=== PATIENT | male | born 1945 | race Caucasian/White ===

== ENCOUNTER 2016-06-18 11:30 | Outpatient (CLI) | payer MEDICARE ==
[~2016-06-18] VITALS: Ht 177.8 cm; Wt 113.4 kg
[~2016-06-18 11:30] MED LIST: CLON0.1T PO; METO-333 PO; PANT40SU PO; SUCR1TAB PO; TELM1TAB2 PO; TORS20TA3 PO
[2016-07-01] MEDS ORDERED: METO-352 PO (11:15)
== END 2016-06-18 12:01 ==
LOC: PREOP 11:30
PROVIDERS: ATTEND Surgery
DX: Z01.818 Encounter for other preprocedural examination (principal); K29.80 Duodenitis without bleeding; K21.9 Gastro-esophageal reflux disease without esophagitis

== ENCOUNTER 2016-06-22 08:32 | Day surgery (SDC) | payer MEDICARE ==
[~2016-06-22] VITALS: Ht 177.8 cm; Wt 113.4 kg
[2016-06-22] MEDS ORDERED: NS IV 1000 ML 1,000 ML ONE (08:34)
[2016-06-22] MEDS ORDERED: PROPOFOL INJECTION 50 ML IV ONE (08:35)
[2016-06-22 08:58] VITALS: BP 191/85
[2016-06-22] MEDS ORDERED: NS IV 1000 ML 1,000 ML IV STA (09:01)
--- NOTE | 2016-06-22 09:14 | Progress Note-Pre Operative ---
Pre-Operative Progress Note H&P Reviewed The H&P was reviewed, patient examined and no changes noted. Date H&P Reviewed: Jun 22, 2016 Time H&P Reviewed: 09:14 Pre-Operative Diagnosis: duodenitis, screening colonoscopy VISHNU COLEMAN DO Jun 22, 2016 9:14 am
[2016-06-22] MEDS ORDERED: fentaNYL INJECTION 100 MCG/2 ML AMP IVP PRN (09:15)
[2016-06-22] MEDS ORDERED: FLUMAZENIL (ROMAZICON) 0.1 MG/ML 5 ML VIAL INJ PRN (09:15)
[2016-06-22] MEDS ORDERED: MIDAZOLAM 2 MG/2 ML (VERSED) VIAL IVP PRN (09:15)
[2016-06-22] MEDS ORDERED: NALOXONE 0.4 MG/ML 1 ML (NARCAN) VIAL IVP PRN (09:15)
[2016-06-22] MEDS ORDERED: HURRICAINE EXT TUBE (BENZOCAINE) XX ONE (09:45)
[2016-06-22] MEDS ORDERED: proPOfol 200 MG/20 ML (DIPRIVAN) VIAL IV ONE (09:56)
--- NOTE | 2016-06-22 10:24 | Progress Note-Post Operative ---
Post-Operative Progess Note Pre-Operative Diagnosis duodenitis, screening colonoscopy Post-Operative Diagnosis antral ulcers, small hiatal hernia, poor prep but no abnormalities visualized Post-Op Procedure Note Date of Procedure: Jun 22, 2016 Name of Procedure: egd c biopsies, colonoscopy Procedure Note/Findings see note Anesthesia Type per fishing reel assembler Estimated blood loss (mL): none Specimen(s) collected antrum, distal esophagus VISHNU COLEMAN DO Jun 22, 2016 10:24 am
[2016-06-22] MEDS ORDERED: SUCR1TAB36 PO (10:40)
[2016-06-22] MEDS ORDERED: RANI150T90 PO (10:40)
--- NOTE | 2016-06-22 10:41 | Discharge Inst-Simple/Standard ---
Discharge Inst-Standard Discharge Medications New, Converted or Re-Newed RX: RX on Chart Patient Instructions/Follow Up Plan of Care/Instructions/FU: Follow up with Dr. Rutherford in 2 weeks Take medication as directed. Will need repeat colonoscopy in 5 years or sooner if current condition changes. Activity as Tolerated: Yes Discharge Diet: No Restrictions CODEY SHIPMAN APRN Jun 22, 2016 10:41
[2016-06-22 10:50] VITALS: BP 98/54
[2016-06-22 11:13] VITALS: BP 145/67
[2016-06-22 11:20] VITALS: BP 145/67
--- NOTE | 2016-06-22 12:51 | OPERATIVE REPORT ---
PROCEDURE PHYSICIAN: VISHNU COLEMAN DATE OF PROCEDURE: 06/22/2016 PREOPERATIVE DIAGNOSIS: 1. Duodenitis. 2. Screening colonoscopy. POSTOPERATIVE DIAGNOSIS: 1. Antral ulcers. 2. Small hiatal hernia. 3. Poor prep but no abnormalities visualized within the colon, PROCEDURE: 1. EGD biopsies. 2. Colonoscopy. SURGEON: Sangeeta. ANESTHESIA: Per BAG MACHINE HELPER. ESTIMATED BLOOD LOSS: None. COMPLICATIONS: None. INDICATIONS: The patient is a 70-year-old male who had a CT scan and abdominal pain. CT scan demonstrating a questionable duodenitis. The patient understands the risks and benefits of the procedure and wishes to proceed with procedures. Consent was signed on the chart. PROCEDURE: The patient was taken the endoscopy suite, placed in left lateral recumbent position. Timeout was performed. The scope was inserted into the mouth, down esophagus, stomach and into the duodenum without difficulty. No polyps, masses, ulcerations within the duodenum. The scope was then slowly retracted back. Within the stomach there were some multiple small antral ulcers with erythema. Biopsies of the antrum was obtained. The scope was also retroflexed noting a very small hiatal hernia. There were no other polyps, masses, ulcerations. The scope was returned as normal position slowly withdrawn back to the distal esophagus, where some slight erythematous changes were present, a biopsy was obtained. The scope was then slowly retracted until completely removed noting no other pathology. COLONOSCOPY: Digital rectal exam was performed. There is no palpable polyps, masses, ulcerations. The scope was inserted into the rectum and advanced all of the way to the cecum. Throughout the colon there is moderate amount of soft stool. Once in the rectum, copious amounts of irrigation was continued to be used to irrigate and suction. There were no polyps, masses, ulcerations visualized within the cecum, ascending, transverse, descending, sigmoid colon and rectum. Multiple insertions were placed inserting the scope in and out noting no other pathology in the rectum. The scope was then slowly retracted with completely removed. With irrigation and suction there was a decent visualization of most of the mucosa. There were still some areas where there was a significant amount of stool present that was unable to be suctioned. Therefore patient ever has any problems, he should be reevaluated at that time. I recommend repeating colonoscopy in 5 years to reexamine. If the patient has any problems prior to that, he should be reexamined at that time. The patient will be started on ranitidine and Carafate due to the antral ulcers. He is allergic to proton pump inhibitors. The patient will be seen approximately 2 to 3 weeks to see how he is doing at that time and go over biopsies and findings. Job ID: [id number] Dictated Date: 06/22/2016 10:28:14 Customer Records Division Supervisor Date: 06/22/2016 12:42:29 / saritha
[2016-07-01] MEDS ORDERED: METO-352 PO (11:15)
== END 2016-06-22 11:20 | disposition home or self-care (01) ==
LOC: SDC 08:32
PROVIDERS: ATTEND Surgery
DX: K29.80 Duodenitis without bleeding (principal); K25.9 Gastric ulcer, unspecified as acute or chronic, without hemorrhage or perforation; K44.9 Diaphragmatic hernia without obstruction or gangrene; I10 Essential (primary) hypertension; F17.210 Nicotine dependence, cigarettes, uncomplicated; J44.9 Chronic obstructive pulmonary disease, unspecified

== ENCOUNTER → 2016-06-23 | Outpatient (CLI) | payer MEDICARE ==
[~2016-06-23] MED LIST changes: +ASCO10006 PO; +CHOL-6 PO; +ECHINACEA PO; +HYDR12.5 PO; +METO-352 PO; +OMEP20CA12 PO; +POTA10CA43 PO; +RANI150T11 PO; +RANI150T90 PO; +SUCR1TAB36 PO; +TELM40TA3 PO; +VITAMIN E PO; +[UNRECOGNIZED DRUG - CODE] PO
--- NOTE | 2016-06-23 16:45 | Diagnostic Imaging Report ---
Renal vascular duplex ultrasound. INDICATION: Hypertension. FINDINGS: The right kidney is 12.9 cm and the left kidney is 13.4 cm in length. There is no hydronephrosis or focal lesion seen. Peak systolic velocities in the right renal artery are 109, 112 and 129 cm/sec from proximal to distal and on the left side the proximal and midrenal artery segments are obscured. The distal left renal artery velocity is 109 cm/sec. Resistive index in the right kidney is in the range of 0.67-0.71 and in the left kidney is in the range of 0.67-0.71. The urinary bladder appears unremarkable. IMPRESSION: No evidence of right renal artery stenosis. The left renal artery is obscured in its proximal and mid segments. Correlation with CT scan of the abdomen from 05/29/2016 demonstrated a plaque in the proximal left renal artery. Although it is not a CTA protocol, there is suggestion of a potentially significant degree of underlying stenosis. Correlation with CTA, MRA or renal angiogram could be considered. Dictated by: Dictated on workstation # [id number]
== END ==
LOC: RAD 10:03
PROVIDERS: ATTEND Internal Medicine Interventional Cardiology
DX: I10 Essential (primary) hypertension (principal); R00.1 Bradycardia, unspecified; R00.8 Other abnormalities of heart beat
CPT/HCPCS: 93225; 93226; 93975

== ENCOUNTER 2016-07-01 06:58 | Day surgery (SDC) | payer MEDICARE ==
[~2016-07-01] VITALS: Ht 177.8 cm; Wt 119.7 kg
[2016-07-01] VITALS (10 sets, daily range): BP systolic 118–225; BP diastolic 88–131
[~2016-07-01 06:58] MED LIST changes: -ASCO10006 PO; -CHOL-6 PO; -ECHINACEA PO; -HYDR12.5 PO; -METO-352 PO; -OMEP20CA12 PO; -POTA10CA43 PO; -RANI150T11 PO; -TELM40TA3 PO; -VITAMIN E PO; -[UNRECOGNIZED DRUG - CODE] PO
[2016-07-01] MEDS ORDERED: NS IV 1000 ML 1,000 ML ONE (07:00)
[2016-07-01] MEDS ORDERED: LIDOCAINE 1% INJ 20 ML (XYLOCAINE) VIAL ONE (07:00)
[2016-07-01] MEDS ORDERED: HEParin (CATH LAB) 2,000 ML IV ONE (07:00)
[2016-07-01] MEDS ORDERED: NS IV 1000 ML 1,000 ML IV SCH ×2 (07:30→11:11)
[2016-07-01 07:32] LABS: MEAN PLATELET VOLUME 9.2 FL (7.4-10.4); RED BLOOD COUNT 4.44 10^6/uL (4.35-5.85); WHITE BLOOD COUNT 6.5 10^3/uL (4.3-11.0)
[2016-07-01 07:43] LABS: PROTHROMBIN TIME PATIENT 13.1 SEC (12.2-14.7)
[2016-07-01 07:52] LABS: ALANINE AMINOTRANSFERASE 18 U/L (0-55); ALBUMIN 4.2 G/DL (3.2-4.5); ANION GAP 10 MMOL/L (5-14); ASPARTATE AMINO TRANSFERASE 15 U/L (5-34); BILIRUBIN,TOTAL 1.2 MG/DL (0.1-1.0); BLOOD UREA NITROGEN 18 MG/DL (7-18); BUN/CREATININE RATIO 17; CALCIUM 8.7 MG/DL (8.5-10.1); CARBON DIOXIDE 28 MMOL/L (21-32); CHLORIDE 100 MMOL/L (98-107); CREATININE SERUM 1.08 MG/DL (0.60-1.30); GFR ESTIMATED > 60; GLUCOSE 146 MG/DL (70-105); POTASSIUM 3.5 MMOL/L (3.6-5.0); SODIUM 138 MMOL/L (135-145); TOTAL PROTEIN 7.2 G/DL (6.4-8.2)
[2016-07-01] MEDS ORDERED: FLU TRIvalent (5 YOA+) 2016-17 (AFLURIA) 0.5 ML IM ONE (08:00)
[2016-07-01] MEDS ORDERED: CHOL-6 PO (08:42)
[2016-07-01] MEDS ORDERED: MIDAZOLAM 5 MG/5 ML (VERSED) VIAL ONE (08:42)
[2016-07-01] MEDS ORDERED: VERAPAMIL 5 MG/2 ML (CALAN) VIAL IV ONE (08:42)
[2016-07-01] MEDS ORDERED: VITAMIN E PO (08:42)
[2016-07-01] MEDS ORDERED: HEParin 1000 UNIT/ML (10ML VIAL) FOR BOLUS ONE (08:42)
[2016-07-01] MEDS ORDERED: ECHINACEA PO (08:42)
[2016-07-01] MEDS ORDERED: TELM40TA3 PO (08:42)
[2016-07-01] MEDS ORDERED: [UNRECOGNIZED DRUG - CODE] PO (08:42)
[2016-07-01] MEDS ORDERED: NITROGLYCERIN DRIP 25 MG/D5W 250 ML IV ONE (08:42)
[2016-07-01] MEDS ORDERED: ASCO10006 PO (08:42)
[2016-07-01] MEDS ORDERED: fentaNYL INJECTION 100 MCG/2 ML AMP ONE (08:42)
[2016-07-01] MEDS ORDERED: RANI150T11 PO (08:42)
[2016-07-01] MEDS ORDERED: HYDR12.5 PO (08:42)
[2016-07-01] MEDS ORDERED: OMEP20CA12 PO (08:42)
[2016-07-01] MEDS ORDERED: POTA10CA43 PO (08:42)
--- NOTE | 2016-07-01 11:00 | Cardiac Procedure Note-CS/ASA ---
Pre-Procedure Note Pre-Op Procedure Note H&P Reviewed The H&P was reviewed, patient examined and no changes noted. Date H&P Reviewed: Jul 01, 2016 Time H&P Reviewed: 08:30 Conscious Sedation Pre-Proced Time Reviewed: 08:30 ASA Class: 2 Airway Mallampati Classification: ([place] appropriate class) I. II. III, IV Lungs Heart ASA score ASA 1: a normal healthy patient ASA 2: a patient with a mild systemic disease (mid diabetes, controlled hypertension, obesity ASA 3: a patient with a severe systemic disease that limits activity (angina , COPD, prior Myocardial infarction) ASA 4: a patient with an incapacitating disease that is a constant threat to life (CHF, renal failure) ASA 5: a moribund patient not expected to survive 24 hrs. (ruptured aneurysm) ASA 6: a declared brain patient whose organs are being harvested. For emergent operations, add the letter E after the classification Grade 1 Sedation Plan: Analgesia, Amnesia, Plan communicated to team members, Discussed options with patient/fam, Discussed risks with patient/fam Note The patient is an appropriate candidate to undergo the planned procedure, sedation, and anesthesia. The patient immediately re-assessed prior to indication. Perico RASHID MD Jul 01, 2016 11:00 am
--- NOTE | 2016-07-01 11:06 | Progress Note-Post Operative ---
Post-Operative Progess Note Pre-Operative Diagnosis shortness of breath, multifocal PVCs, ventricular tachycardia Post-Operative Diagnosis moderate single vessel coronary artery disease Post-Op Procedure Note Date of Procedure: Jul 01, 2016 Name of Procedure: coronary angiography, left heart catheterization Procedure Note/Findings normal LV function with no wall motion abnormalities. Patent RCA, patent LAD/diagonal, patent ramus intermedius, moderate proximal disease in a small/medium-sized left circumflex artery. Anesthesia Type local anesthesia, conscious sedation Estimated blood loss (mL): 10 mL Packing: none Specimen(s) collected none Perico RASHID MD Jul 01, 2016 11:06 am
[2016-07-01] MEDS ORDERED: PATIENT MAY USE OWN MEDS, ALL PO SCH (11:15)
[2016-07-01] MEDS ORDERED: METO-352 PO (11:15)
--- NOTE | 2016-07-01 11:16 | Discharge Inst-Post CATH ---
Discharge Inst-CATH Post Cardiac Cath D/C Inst Follow Up/Plan Dr Jamison in one to two weeks 30 day event monitor CARDIAC CATH DISCHARGE INSTRUCTIONS *Hold Metformin for 48 hours post heart cath. ACTIVITY * Go Home directly and rest. * Limit activity of the leg (or wrist if it was used) for 7 days including aerobics, swimming, jogging, bicycling, etc. * Restrict stair-climbing for 7 days if possible, if not, climb up with your non -cath leg, then bring together on the same step. * Avoid lifting, pushing, pulling or excessive movement of the affected extremity for 7 days. * Customary sexual activity may be resumed after 2 days-use caution not to use a position that strains or causes pain to the affected extremity. * No driving for 24 hours. * NO SMOKING. * Avoid straining for bowel movements for 7 days. * Gentle walking on level ground is allowed. * Returning to work will depend on the type of procedure and the results. Your doctor will discuss this with you. CALL YOUR DOCTOR FOR ANY OF THE FOLLOWING: *If bleeding from the puncture site occurs- Apply gentle pressure to site with clean cloth and call your doctor or EMS. * If a knot or lump forms under the skin, increases in size, or causes pain. * If bruising appears to be worsening or moving further down your leg instead of disappearing. * Temperature above 101 F. CARE OF YOUR GROIN INCISION; * Bruising or purple discoloration of the skin near the puncture site is common. * You may shower only, no bathtub bathing for 5 days. Be careful to avoid slipping as your leg may feel stiff. * If a closure device was used on your femoral artery, please see the attached guide regarding care of the device and your leg. * REMOVE the dressing from your groin the next day after your procedure in the shower. CARE OF YOUR WRIST INCISION; * Bruising or purple discoloration of the skin near the puncture site is common. * You may shower. * DO NOT submerge wrist. * Remove dressing in 24 hours. Perico JAMISON MD Jul 01, 2016 11:16 am
--- NOTE | 2016-07-01 11:19 | Cardiology Discharge Summary ---
Diagnosis/Chief Complaint Date of Admission 07/01/2016 Date of Discharge 07/01/2016 Admission Diagnosis shortness of breath, multifocal PVCs, ventricular tachycardia, active smoking Final/Discharge Diagnosis moderate single-vessel coronary artery disease Chief Complaint/HPI Chief Complaint/HPI shortness of breath, multifocal PVCs, 8 second run of ventricular tachycardia, active smoking Discharge Summary Procedures coronary angiography, left heart catheterization Discharge Physical Examination stable Hospital Course moderate single vessel coronary artery disease, normal LV function Pending Labs Laboratory Tests 07/01/16 07:25: Activated Partial Thromboplast Time 27, Alanine Aminotransferase (ALT/SGPT) 18, Albumin 4.2, Alkaline Phosphatase 50, Anion Gap 10, Aspartate Amino Transf (AST/ SGOT) 15, BUN/Creatinine Ratio 17, Blood Urea Nitrogen 18, Calcium Level 8.7, Carbon Dioxide Level 28, Chloride Level 100, Creatinine 1.08, Estimat Glomerular Filtration Rate > 60, Glucose Level 146, Hematocrit 40, Hemoglobin 14.5, INR Comment 1.0, Mean Corpuscular Hemoglobin 33, Mean Corpuscular Hemoglobin Concent 36, Mean Corpuscular Volume 90, Mean Platelet Volume 9.2, Platelet Count 149, Potassium Level 3.5, Prothrombin Time 13.1, Red Blood Count 4.44, Red Cell Distribution Width 15.0, Sodium Level 138, Total Bilirubin 1.2, Total Protein 7.2, White Blood Count 6.5 Discussion & Recommendations Discussion moderate single vessel coronary artery disease, normal LV function, 30 day event monitor is recommended. Dicharge Diet: Cardiac Diet Activity as Tolerated: Yes Home Medications Reviewed patient Home Medication Reconciliation Form Discharge Home Medications: Reviewed and agree with Discharge Medication list on patient's Discharge Instruction sheet Condition at discharge stable Instructions to patient/family Dr Jamison in one to two weeks 30 day event monitor Perico JAMISON MD Jul 01, 2016 11:19 am
--- NOTE | 2016-07-01 11:50 | ECHOCARDIOGRAPHY REPORT ---
PROCEDURE PHYSICIAN: LEELEE RASHID DATE OF PROCEDURE: 07/01/2016 TWO DIMENSIONAL ECHOCARDIOGRAM REPORT PRIMARY PHYSICIAN: OTHER PHYSICIAN: REFERRING PHYSICIAN: ORDERING PHYSICIAN: ATTENDING PHYSICIAN: FAMILY PHYSICIAN: READING PHYSICIAN: INDICATION FOR THE PROCEDURE: MEASUREMENTS DERIVED VALUES LV DIAMETER (LAX) NORMALS NORMALS Diastolic (3.6-5.2) Eject. Fract. (60%+/-6%) Systolic (2.3-3.9) Diastolic Vol. % Shortening (0.22-0.42) Systolic Vol. Aortic Root IVS THICKNESS Diastolic (0.6-1.1) LVPW THICKNESS Diastolic (0.6-1.1) LA DIAMETER Systolic (2.1-3.7) FINDINGS: 1. Sinus rhythm. 2. Left atrial dimensions are enlarged. Left atrial diameter is 4.5 cm. 3. Aortic root dimensions are normal. 4. Left ventricular systolic function is preserved. Left ventricular ejection fraction is 60 to 70%. Mild concentric LVH is present. Diastolic intraventricular septal diameter is 1.2 cm. 5. There is no wall motion abnormalities. 6. Right heart dimensions are normal. Right ventricular systolic function is preserved. 7. There is no evidence of pericardial effusion. 8. There is mild diastolic dysfunction present. 9. IVC diameter is 1.7 cm with normal respiratory variation. VALVULAR STRUCTURE OF THE HEART: Mitral valve: There is mild mitral annular calcification noted. There is mild mitral regurgitation. The aortic valve has mild sclerosis with no significant evidence of stenosis or regurgitation. The tricuspid valve has mild tricuspid regurgitation. RVSP is 59 mmHg. The pulmonic valve is within normal limits. CONCLUSION: 1. LV and RV size and function is normal. 2. LV EF is 60 to 70%. 3. Mild concentric LVH and left atrial enlargement is noted. 4. Moderate pulmonary hypertension is noted with RVSP of 59 mmHg. 5. Mild diastolic dysfunction is present. Job ID: [id number] Dictated Date: 07/01/2016 09:37:08 Commercial Credit Lead Date: 07/01/2016 11:45:34 / saritha
[2016-07-02] MEDS ORDERED: ASPIRIN E.C. 81 MG (ECOTRIN) TAB PO SCH (09:00)
--- NOTE | 2016-07-02 09:35 | CARDIAC CATHETERIZATION ---
PROCEDURE PHYSICIAN: LEELEE RASHID CORONARY ANGIOGRAPHY DATE OF PROCEDURE: 07/01/2016 INDICATION: Shortness of breath, multifocal PVC's, ventricular tachycardia. PREOPERATIVE DIAGNOSIS: Shortness of breath, multifocal PVCs, ventricular tachycardia. POSTOPERATIVE DIAGNOSIS: Moderate single vessel coronary artery disease. HISTORY: Mr. Zamora is a 70-year-old gentleman who I previously saw for shortness of breath and frequent PVCs. Since he had a stress echocardiogram, which was negative recently we did not performed any further invasive cardiac testing. However, to assess the burden of PVCs. We performed a Holter monitor which showed frequent multifocal PVCs and 8 seconds run of an irregular wide complex tachycardia, which could likely be ventricular tachycardia. Other differential include atrial fibrillation with aberrancy. Therefore coronary angiography was recommended to rule out coronary artery disease as a cause of significant ventricular ectopy and ventricular tachycardia. The patient also has risk factors including active smoking. PROCEDURE PERFORMED: 1. Right upper extremity angiography. 2. Coronary angiography. 3. Left heart catheterization. COMPLICATIONS: None. SPECIMENS: None. ESTIMATED BLOOD LOSS: 10 mL. CONTRAST: 160 mL of Omnipaque. FLUOROSCOPY TIME: 11.7 minutes. FLUOROSCOPY DOSE: 3,091 mGy. ANTICOAGULATION: Heparin. PROCEDURE DETAILS: The patient was brought to the Purification Operator after informed consent was taken. All the risks and complications were explained in detail including vessel damage, bleeding, CVA, stroke, [place], even . The patient was brought to the Purification Operator and draped and prepped in the usual sterile fashion. Access was gained in the right radial artery with a 6-Green[place]ic sheath. However, we had difficulty in advancing a regular J tipped 0.035 guidewire therefore right upper extremity angiography was performed. 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 We therefore switched to a Storq long wire and were able to get to the aortic root. Coronary angiography and left heart catheterization was performed with a Claudio catheter. Right coronary artery angiography was performed with a JR4 catheter. FINDINGS: 1. Left heart catheterization: Aortic pressure 166/99 mmHg, LV pressure 168/15 mmHg, LVEDP 24 mmHg. Normal LV function with no wall motion abnormalities. There was no gradient across the aortic valve. 2. Normal left main. 3. Left circumflex artery. There is a small left circumflex artery, which is essentially an AV groove artery with moderate proximal stenosis (50%). However, this is a small vessel between 1.5-2 mm diameter. There is a larger ramus intermedius artery which is supplying most of the lateral wall and part of the apex as well. 4. LAD: The LAD is not a large vessel and it is also not a transapical vessel. There one or two large diagonal arteries as well which is supplying the anterior wall as well as the apex and the lateral well. 5. RCA: It was very difficult to engage the RCA with a Claudio catheter. We then shifted to a 5-[place]ic JR 4 diagnostic catheter which showed no significant disease in the RCA. 6. Right upper extremity angiography: patent right radial and ulnar artery. IMPRESSION/CONCLUSION: 1. Moderate single vessel coronary artery disease. 2. Normal LV function with increased LVEDP. 3. Increase LVEDP suggests diastolic dysfunction. 4. Discharged on aspirin and beta chanda. Good blood pressure control is recommended. 5. 30 day event monitor for further arrhythmia surveillance. \ 6. He will follow-up in my office in 1 to 2 weeks. Job ID: [id number] Dictated Date: 07/01/2016 11:42:44 Medical Office Asst Date: 07/02/2016 09:21:39 / saritha DODGE
== END 2016-07-01 15:05 | disposition home or self-care (01) ==
LOC: CARD 06:58 → SURG 11:40 → CARD 15:05
PROVIDERS: ATTEND Internal Medicine Interventional Cardiology
DX: I25.10 Atherosclerotic heart disease of native coronary artery without angina pectoris (principal); I47.2 Ventricular tachycardia; I49.3 Ventricular premature depolarization; R06.02 Shortness of breath; I10 Essential (primary) hypertension; R60.9 Edema, unspecified; R00.8 Other abnormalities of heart beat; Z72.0 Tobacco use; Z79.899 Other long term (current) drug therapy
CPT/HCPCS: 36415; 75710; 80053; 85027; 85610; 85730; 87081; 93005; 93306; 93458

== ENCOUNTER 2016-08-02 09:30 | Outpatient (RCR) | payer MEDICARE ==
[~2016-08-02 09:30] MED LIST changes: +ASCO10006 PO; +CHOL-6 PO; +ECHINACEA PO; +HYDR12.5 PO; +METO-352 PO; +OMEP20CA12 PO; +POTA10CA43 PO; +RANI150T11 PO; +TELM40TA3 PO; +VITAMIN E PO; +[UNRECOGNIZED DRUG - CODE] PO
== END 2016-10-04 | disposition home or self-care (01) ==
LOC: CARD 09:30
PROVIDERS: ATTEND Internal Medicine Interventional Cardiology
DX: I48.91 Unspecified atrial fibrillation (principal)
CPT/HCPCS: 93270

== ENCOUNTER 2017-11-11 20:02 | Emergency (ER) | payer MEDICARE ==
[~2017-11-11] VITALS: Ht 177.8 cm; Wt 119.7 kg
--- NOTE | 2017-11-11 21:08 | ED Lower Extremity ---
General Chief Complaint: Lower Extremity Stated Complaint: R KNEE PAIN Source: patient Exam Limitations: no limitations History of Present Illness Date Seen by Provider: Nov 11, 2017 Time Seen by Provider: 21:06 Initial Comments to ER with right knee pain. this began this morning. No history of this. Pain is limited to a quarter-sized area to the anteromedial aspect of the right knee. Worsened with leg extension, very tender to palpation. He denies any known injury. Onset: just prior to arrival Severity: moderate Pain/Injury Location: right knee Method of Injury: unknown Modifying Factors: Worse With Movement Allergies and Home Medications Allergies Coded Allergies: ibuprofen (Verified Allergy, Unknown, 06/22/16) Uncoded Allergies: ppi (Allergy, Mild, diarrhea, 06/22/16) Home Medications Ascorbic Acid 1,000 Mg Tablet, 2,000 MG PO DAILY, (Reported) Cholecalciferol (Vitamin D3) 10,000 Unit Capsule, 10,000 UNIT PO DAILY, ( Reported) Clonidine HCl 0.1 Mg Tablet, 0.1 MG PO DAILY PRN for BLOOD PRESSURE, (Reported) Hydrochlorothiazide 12.5 Mg Capsule, 12.5 MG PO DAILY, (Reported) Lecithin 1,200 Mg Capsule, 1,200 MG PO DAILY, (Reported) Metoprolol Succinate 50 Mg Tab.er.24h, 50 MG PO DAILY Prescribed by: Perico RASHID on 07/01/16 1115 Omeprazole 20 Mg Capsule.dr, 20 MG PO DAILY, (Reported) Potassium Chloride 10 Meq Capsule.er, 20 MEQ PO DAILY PRN for WITH TORSEMIDE, ( Reported) TAKES 2 (10 MEQ) CAPSULES Ranitidine HCl 150 Mg Tablet, 150 MG PO BID, (Reported) Telmisartan 40 Mg Tablet, 40 MG PO DAILY, (Reported) Torsemide 20 Mg Tablet, 20 MG PO DAILY PRN for EDEMA, (Reported) [Echinacea] , 1 CAP PO DAILY, (Reported) [Vitamin E] , 1 CAP PO DAILY, (Reported) Patient Home Medication List Home Medication List Reviewed: Yes Constitutional: see HPI EENTM: see HPI Respiratory: no symptoms reported Cardiovascular: no symptoms reported Genitourinary: no symptoms reported Musculoskeletal: see HPI Skin: no symptoms reported Psychiatric/Neurological: No Symptoms Reported Past Llgdizz-Ezmjfl-Sjllda Hx Patient Social History Alcohol Use: Denies Use Recreational Drug Use: No Type Used: Cigarettes Recent Foreign Travel: No Contact w/Someone Who Travel: No Recent Hopitalizations: No Immunizations Up To Date Tetanus Booster (TDap): Unknown Seasonal Allergies Seasonal Allergies: No Past Medical History Surgeries: Yes (foot surgery, ARM, CATARACT) Tonsillectomy Respiratory: Yes (MILD) Sleep Apnea Cardiac: Yes (POSSIBLE ATRIAL FIB, STRESS ECHO-GOOD, BIGEMINY) Hypertension Neurological: No Reproductive Disorders: No Sexually Transmitted Disease: No HIV/AIDS: No Gastrointestinal: Yes (DUODENITIS) Ulcer Musculoskeletal: Yes Arthritis, Back Injury, Chronic Back Pain Endocrine: No Loss of Vision: Bilateral Hearing Impairment: Denies Cancer: No Psychosocial: No Integumentary: No Blood Disorders: No Adverse Reaction/Blood Tranf: No (N/A) Family Medical History No Pertinent Family Hx Physical Exam Vital Signs Vital Signs - First Documented 11/11/17 21:02 Temp 99.9 Pulse 66 Resp 18 B/P (MAP) 185/98 (127) Capillary Refill : General Appearance: WD/WN, no apparent distress HEENT: PERRL/EOMI, normal ENT inspection Neck: non-tender, full range of motion Respiratory: no respiratory distress, no accessory muscle use Hips: bilateral hip non-tender, bilateral hip normal inspection, bilateral hip normal range of motion Legs: bilateral leg non-tender, bilateral leg normal inspection, bilateral leg normal range of motion Knees: right knee other (here is tenderness to palpation to a quarter size area over the anteromedial aspect of the proximal tibia at the knee. There is no overlying erythema or swelling. There is no palpable knee effusion.) Ankles: bilateral ankle non-tender, bilateral ankle normal inspection, bilateral ankle normal range of motion Feet: bilateral foot non-tender, bilateral foot normal inspection, bilateral foot normal range of motion Neurologic/Psychiatric: alert, normal mood/affect, oriented x 3 Skin: normal color, warm/dry Progress/Results/Core Measures Results/Orders My Orders Orders - MELINDA SPIVEY APRN Knee, Right, 3 Views (11/11/17 21:04) Hydrocodone/Apap 5/325 Tablet (Lortab 5 (11/11/17 21:15) Lidocaine 2% Injection 20 Ml (Xylocaine (11/11/17 22:00) Bupivacaine 0.5% Injection (Sensorcaine (11/11/17 22:00) Triamcinolone Acetonide Im (Kenalog-40) (11/11/17 22:00) Methylprednisolone Sod Succ (Solu-Medrol (11/11/17 22:15) Methylprednisolone Sod Succ (Solu-Medrol (11/11/17 22:04) Medications Given in ED Current Medications Medications Dose Ordered Sig/Dylon Route Start Time Stop Time Status Last Admin Dose Admin Acetaminophen/ Hydrocodone Bitart 1 tab ONCE ONCE PO 11/11/17 21:15 11/11/17 21:16 DC 11/11/17 21:15 1 TAB Vital Signs/I&O 11/11/17 21:02 Temp 99.9 Pulse 66 Resp 18 B/P (MAP) 185/98 (127) Progress Progress Note : Progress Note procedure note for pes anserine bursal injection: 2214- on the right knee the area of tenderness was identified and marked with a skin pen. This was cleaned with alcohol. This was then anesthetized with about 0.1 mL of lidocaine using a 27-gauge needle half-inch.I then injecteda total of 2 mL of a combination of 2% lidocaine, 0.5% Marcaine both without epinephrine and 30 mg of Solu-Medrol into the pes anserine bursa.this resulted in immediate improvement in pain and he was immediately able to extend his leg fully without any pain. Departure Impression Primary Impression: Pes anserinus bursitis of right knee Disposition: 01 HOME, SELF-CARE Condition: Stable Departure-Patient Inst. Decision time for Depature: 21:30 Referrals: Lin GIRARD DO (PCP/Family) Primary Care Physician Patient Instructions: Pes Anserine Bursitis Add. Discharge Instructions: 1. Ice pack to the area of pain in addition to ibuprofen,All discharge instructions reviewed with patient and/or family. Voiced understanding. MELINDA SPIVEY APRN Nov 11, 2017 21:08
[2017-11-11] MEDS ORDERED: HYDROcodone/APAP 5 MG/325 MG (LORTAB) TAB PO ONE (21:15)
[2017-11-11] MEDS ORDERED: BUPIVACAINE 0.5% 30 ML (SENSORCAINE) VIAL INJ ONE (22:00)
[2017-11-11] MEDS ORDERED: TRIAMCINOLONE ACET (KENALOG-40) 40 MG/ML 1 ML VIAL IA ONE (22:00)
[2017-11-11] MEDS ORDERED: LIDOCAINE 2% 20 ML (XYLOCAINE) VIAL INJ ONE (22:00)
[2017-11-11] MEDS ORDERED: methylPREDNISolone 125 MG (Solu-MEDROL) VIAL ONE (22:04)
[2017-11-11] MEDS ORDERED: methylPREDNISolone 125 MG (Solu-MEDROL) VIAL IJ ONE (22:15)
[2017-11-11 22:19] VITALS: BP 185/98
--- NOTE | 2017-11-11 22:20 | Diagnostic Imaging Report ---
INDICATION: Woke up with pain in knee. No known injury. TECHNIQUE: Three views of the right knee. CORRELATION STUDY: None. FINDINGS: Joint spaces demonstrate mild narrowing medially. The articular surfaces are smooth. There is an elongated bone density adjacent to the proximal medial tibia. This appears to be likely nonacute but could be reflective of previous ligament/tendon injury. Prominent osteophytes both superiorly and inferiorly off the patella. Soft tissues with mild vascular calcification. Soft tissues are unremarkable. IMPRESSION: 1. Negative for acute bony abnormality of the knee. Mild degenerative changes are present. Additionally, there is a thin bony density adjacent to the medial tibia which could be reflective of previous avulsion or ligament/tendon injury. Dictated by: Dictated on workstation # [id number]
== END 2017-11-11 22:19 | disposition home or self-care (01) ==
LOC: EDUNIT# 20:02 → ER 20:03
DX: M70.51 Other bursitis of knee, right knee (principal); G47.30 Sleep apnea, unspecified; I10 Essential (primary) hypertension; Z88.6 Allergy status to analgesic agent; Z90.89 Acquired absence of other organs
CPT/HCPCS: 73562; 96372; 99282

== ENCOUNTER → 2022-09-02 | Outpatient (CLI) | payer MEDICARE ==
[~2022-09-02] MED LIST changes: +ASCO100024 PO; -ASCO10006 PO; +CLN.1T PO; -CLON0.1T PO; -OMEP20CA12 PO; +OMEP20CA18 PO; -POTA10CA43 PO; +POTA10CA44 PO; -TELM40TA3 PO; +TELM40TA6 PO
--- NOTE | 2022-09-02 14:55 | Diagnostic Imaging Report ---
EXAMINATION: Right knee radiographs, 4 views. COMPARISON: None. HISTORY: 76-year-old male, right knee pain. FINDINGS: There is degenerative type patellar enthesopathy. There are vascular calcifications. The patella is normally positioned. There is a well-corticated ossification projecting along the expected distribution of the superficial component of the medial collateral ligament complex at its distal aspect likely reflecting sequela of remote prior injury. There is no acute fracture. IMPRESSION: 1. No identified acute bony abnormality of the right knee. 2. Well-preserved joint spaces without joint effusion. 3. Sequela of remote prior injury involving the superficial component of the medial collateral ligament complex at its distal aspect. Dictated by: Dictated on workstation # [id number]
== END ==
LOC: ORTHO 13:07
PROVIDERS: ATTEND Orthopaedic Surgery
DX: M17.0 Bilateral primary osteoarthritis of knee (principal)
CPT/HCPCS: 73564; G0463; 99203

== ENCOUNTER 2023-04-08 18:32 | Inpatient (IN) | payer MEDICARE ==
[~2023-04-08] VITALS: Ht 177.8 cm; Wt 104.3 kg
[~2023-04-08 18:32] MED LIST changes: -POTA10CA44 PO; +POTA10CA84 PO
[2023-04-08] MEDS ORDERED: PIPERACILLIN/Tazobactam 4.5 GM in NS (IVPB) 100 ML 100 ML IV ONE (19:00)
[2023-04-08] MEDS ORDERED: NS IV 1000 ML 1,000 ML IV SCH (19:00)
--- NOTE | 2023-04-08 19:02 | ED Lower Extremity ---
General Stated Complaint: RT LEG PAIN Source: patient History of Present Illness Date Seen by Provider: Apr 08, 2023 Time Seen by Provider: 18:50 Initial Comments PT ARRIVES VIA POV FROM HOME IN [place] C/O RIGHT FOOT AND LOWER LEG INFECTION--ONGOING SINCE SPRING PT TOOK 10 DAYS OF KEFLEX, AND FINISHED 20 DAYS OF ANOTHER UNKNOWN ANTIBIOTIC " A FEW DAYS AGO" HE HAS NOT ATTEMPTED TO FOLLOW UP WITH HIS PCP AT ANY TIME FOR THIS, AND IT IS NOW TUESDAY NIGHT. PAIN WOKE HIM UP AT 0300 THIS AM, TOOK 2 PERCOCET AT 0305, AND ANOTHER 1/2 PERCOCET AT 0345 AND PAIN IMPROVED. HE HAS NOT TAKEN ANYTHING ELSE FOR PAIN NO KNOWN FEVER PT IS DIABETIC, DOES NOT TAKE ANY MEDICATIONS FOR DIABETES AND DOES NOT CHECK HIS BLOOD SUGAR LAST TETANUS UNKNOWN PCP: DR. GIRARD Allergies and Home Medications Allergies Coded Allergies: ibuprofen (Verified Allergy, Unknown, 06/22/16) Uncoded Allergies: ppi (Allergy, Mild, diarrhea, 06/22/16) Patient Home Medication List Ascorbic Acid (Vitamin C) 1,000 Mg Tablet, 2,000 MG PO DAILY, (Reported) Entered as Reported by: JENNY DELACRUZ on 07/01/16 0842 Cholecalciferol (Vitamin D3) (Vitamin D3) 10,000 Unit Capsule, 10,000 UNIT PO DAILY, (Reported) Entered as Reported by: JENNY DELACRUZ on 07/01/16 0842 Clonidine HCl (Clonidine HCl) 0.1 Mg Tablet, 0.1 MG PO DAILY PRN for BLOOD PRESSURE, (Reported) Entered as Reported by: HONORIO HARRISON on 05/29/16 0740 Hydrochlorothiazide (Hydrochlorothiazide) 12.5 Mg Capsule, 12.5 MG PO DAILY, (Reported) Entered as Reported by: JENNY DELACRUZ on 07/01/16 0842 Lecithin (Lecithin) 1,200 Mg Capsule, 1,200 MG PO DAILY, (Reported) Entered as Reported by: JENNY DELACRUZ on 07/01/16 0842 Metoprolol Succinate (Toprol Xl) 50 Mg Tab.er.24h, 50 MG PO DAILY Prescribed by: Perico RASHID on 07/01/16 1115 Omeprazole (Omeprazole) 20 Mg Capsule.dr, 20 MG PO DAILY, (Reported) Entered as Reported by: JENNY DELACRUZ on 07/01/16841 Potassium Chloride (Potassium Chloride) 10 Meq Capsule.er, 20 MEQ PO DAILY PRN for WITH TORSEMIDE, (Reported) Entered as Reported by: JENNY DELACRUZ on 07/01/16841 Ranitidine HCl (Ranitidine HCl) 150 Mg Tablet, 150 MG PO BID, (Reported) Entered as Reported by: JENNY DELACRUZ on 07/01/16841 Telmisartan (Telmisartan) 40 Mg Tablet, 40 MG PO DAILY, (Reported) Entered as Reported by: JENNY DELACRUZ on 07/01/16841 Torsemide (Torsemide) 20 Mg Tablet, 20 MG PO DAILY PRN for EDEMA, (Reported) Entered as Reported by: HONORIO HARRISON on 05/29/16 0740 [Echinacea] , 1 CAP PO DAILY, (Reported) Entered as Reported by: JENNY DELACRUZ on 07/01/16841 [Vitamin E] , 1 CAP PO DAILY, (Reported) Entered as Reported by: JENNY DELACRUZ on 07/01/16841 Review of Systems Constitutional: no symptoms reported Musculoskeletal: see HPI Skin: see HPI Past Opusdsb-Sijpyh-Kqdtcc Hx Immunizations Up To Date Tetanus Booster (TDap): Unknown Seasonal Allergies Seasonal Allergies: No Past Medical History Surgeries: Yes (foot surgery, ARM, CATARACT) Tonsillectomy Respiratory: Yes (MILD) Sleep Apnea Cardiac: Yes (POSSIBLE ATRIAL FIB, STRESS ECHO-GOOD, BIGEMINY) Hypertension Neurological: No Reproductive Disorders: No Sexually Transmitted Disease: No HIV/AIDS: No Gastrointestinal: Yes (DUODENITIS) Ulcer Musculoskeletal: Yes Arthritis, Back Injury, Chronic Back Pain Endocrine: No Loss of Vision: Bilateral Hearing Impairment: Denies Cancer: No Psychosocial: No Integumentary: No Blood Disorders: No Adverse Reaction/Blood Tranf: No (N/A) Family Medical History No Pertinent Family Hx Physical Exam Vital Signs Capillary Refill : Height, Weight, BMI Height: 5'10.00" Weight: 264lbs. 0.0oz. 119.280005wf; 37.9 BMI Method:Stated Progress/Results/Core Measures Results/Orders My Orders Orders - SKIP COSTA DO Cbc And Automated Diff (04/08/23 18:53) Comprehensive Metabolic Panel (04/08/23 18:53) Blood Culture (04/08/23 18:53) Urinalysis (04/08/23 18:53) Urine Culture (04/08/23 18:53) Protime With Inr (04/08/23 18:53) Partial Thromboplastin Time (04/08/23 18:53) Chest 1 View, Ap/Pa Only (04/08/23 18:53) Ed Iv/Invasive Line Start (04/08/23 18:53) Ed Iv/Invasive Line Start (04/08/23 18:53) Vital Signs Adult Sepsis Patie Q15M (04/08/23 18:53) O2 (04/08/23 18:53) Remove Rings In Anticipation O (04/08/23 18:53) Lactic Acid Analyzer (04/08/23 18:53) Ns Iv 1000 Ml (Ns Iv 1000 Ml) (04/08/23 19:00) Piperacillin/Tazobactam (Piperacillin/Ta (04/08/23 19:00) Vancomycin Injection (Vancomycin Injecti (04/08/23 19:00) Bnp Dayanna (04/08/23 18:53) Hs C Reactive Protein (04/08/23 18:53) Magnesium (04/08/23 18:53) Erythrocyte Sedimentation Rate (04/08/23 18:53) Myoglobin Serum (04/08/23 18:53) Accucheck Stat ONCE (04/08/23 18:56) Monitor-Rhythm Ecg Trace Only (04/08/23 18:56) Departure Departure-Patient Inst. Referrals: Lin GIRARD DO (PCP/Family) Primary Care Physician SKIP COSTA DO Apr 08, 2023 19:02
[2023-04-08 19:03] LABS: BASOPHILS % (AUTO) 1 % (0-10); EOSINOPHILS # (AUTO) 0.3 10^3/uL (0.0-0.3); EOSINOPHILS % (AUTO) 4 % (0-10); HEMATOCRIT 38 % (40-54); HEMOGLOBIN 13.5 g/dL (13.3-17.7); LYMPHOCYTES # (AUTO) 1.5 10^3/uL (1.0-4.0); LYMPHOCYTES % (AUTO) 24 % (12-44); MEAN CORPUSCULAR HEMOGLOBIN 33 pg (25-34); MEAN CORPUSCULAR HGB CONC 36 g/dL (32-36); MEAN CORPUSCULAR VOLUME 94 fL (80-99); MEAN PLATELET VOLUME 9.2 fL (9.0-12.2); MONOCYTES # (AUTO) 0.5 10^3/uL (0.0-1.0); MONOCYTES % (AUTO) 8 % (0-12); NEUTROPHILS % (AUTO) 63 % (42-75); PLATELET COUNT 158 10^3/uL (130-400); WHITE BLOOD COUNT 6.3 10^3/uL (4.3-11.0)
--- NOTE | 2023-04-08 19:11 | Diagnostic Imaging Report ---
EXAMINATION: Chest, 1 view. HISTORY: Sepsis. COMPARISON: 05/29/2016. FINDINGS: The lung volumes are normal. No focal consolidation is seen. No large pleural effusion or pneumothorax is seen. The cardiomediastinal silhouette is normal in size and contour. No acute osseous abnormality is seen. IMPRESSION: No acute pleuroparenchymal process. Dictated by: Dictated on workstation # [id number]
[2023-04-08] MEDS ORDERED: Tetanus/Diphtheria/Pertussis (Acell) ADULT Vaccine 0.5 ML IM ONE (19:15)
[2023-04-08 19:16] LABS: INR 0.9 (0.8-1.4); PROTHROMBIN TIME PATIENT 12.7 SEC (12.2-14.7)
[2023-04-08 19:25] LABS: ALBUMIN 4.3 GM/DL (3.2-4.5); BILIRUBIN,TOTAL 0.8 MG/DL (0.1-1.0); CALCIUM 9.2 MG/DL (8.5-10.1); CREATININE SERUM 1.56 MG/DL (0.60-1.30); MAGNESIUM 2.1 MG/DL (1.6-2.4); POTASSIUM 3.8 MMOL/L (3.6-5.0); TOTAL PROTEIN 8.3 GM/DL (6.4-8.2)
[2023-04-08 19:42] LABS: ERYTHROCYTE SEDIMENTATION RATE 35 MM/HR (0-30)
[2023-04-08] MEDS: VANCOMYCIN INJECTION 1,000 MG in NS (IVPB) 250 ML 250 ML IV SCH ×2 (19:57→21:17)
[2023-04-08] MEDS ORDERED: fentaNYL INJECTION 100 MCG/2 ML VIAL IVP ONE (20:00)
--- NOTE | 2023-04-08 20:22 | Diagnostic Imaging Report ---
PROCEDURE: CT right lower extremity without contrast. TECHNIQUE: Axially acquired CT was obtained through the right lower extremity without intravenous contrast. Coronal and sagittal reformations were also performed. Auto Exposure Controls were utilized during the CT exam to meet ALARA standards for radiation dose reduction. INDICATION: Cellulitis. FINDINGS: There is no acute fracture, dislocation, or destructive osseous process. There is a possible healed fracture of the distal right tibia. There is mild diffuse subcutaneous edema throughout the right lower extremity without loculated fluid collection. The joint spaces are normal. IMPRESSION: 1. Diffuse subcutaneous edema throughout the right lower extremity without loculated fluid collection. Findings could be seen with edema or cellulitis in the appropriate clinical setting. 2. No acute osseous abnormality. Findings suggest chronic healed fracture of the distal right tibia. Dictated by: Dictated on workstation # [id number]
[2023-04-08] MEDS ORDERED: ANTACID SUSPENSION 30 ML UDC PO PRN (21:00)
[2023-04-08] MEDS ORDERED: MILK OF MAGNESIA 400 MG/5 ML 30 ML UDC PO PRN (21:00)
[2023-04-08] MEDS ORDERED: BENZONATATE 100 MG CAPSULE PO PRN (21:00)
[2023-04-08] MEDS ORDERED: ONDANSETRON INJECTION 4 MG/2 ML (SDV) IV PRN (21:00)
[2023-04-08] MEDS ORDERED: VANCOMYCIN INJECTION 0.1 MG in NS (IVPB) 250 ML 250 ML IV SCH (21:00)
[2023-04-08] MEDS ORDERED: MELATONIN 3 MG TABLET PO PRN (21:00)
[2023-04-08] MEDS: inSUlin ASPART 1 UNIT/0.01 ML (PER UNIT) SC SCH (22:17)
[2023-04-08 22:24] VITALS: BP 200/83
[2023-04-08] MEDS ORDERED: NICOTINE 14 MG PATCH TD ONE (22:30)
[2023-04-08] MEDS: fentaNYL INJECTION 100 MCG/2 ML VIAL IVP PRN ×2 (22:36→23:39)
[2023-04-08] MEDS: NS IV 1000 ML 1,000 ML IV SCH (22:37)
[2023-04-08 23:32] VITALS: BP 138/86
[2023-04-09] MEDS: PIPERACILLIN/Tazobactam 4.5 GM in NS (IVPB) 100 ML 100 ML IV SCH ×3 (01:37→16:30)
[2023-04-09] MEDS: fentaNYL INJECTION 100 MCG/2 ML VIAL IVP PRN ×5 (01:37→08:29)
[2023-04-09] MEDS: NS IV 1000 ML 1,000 ML IV SCH ×3 (03:14→15:17)
[2023-04-09 04:30] VITALS: BP 157/72
[2023-04-09] MEDS: inSUlin ASPART 1 UNIT/0.01 ML (PER UNIT) SC SCH ×4 (05:12→20:53)
[2023-04-09 05:46] LABS: BASOPHILS % (AUTO) 1 % (0-10); EOSINOPHILS # (AUTO) 0.2 10^3/uL (0.0-0.3); EOSINOPHILS % (AUTO) 5 % (0-10); HEMATOCRIT 32 % (40-54); HEMOGLOBIN 11.2 g/dL (13.3-17.7); LYMPHOCYTES # (AUTO) 1.3 10^3/uL (1.0-4.0); LYMPHOCYTES % (AUTO) 24 % (12-44); MEAN CORPUSCULAR HEMOGLOBIN 33 pg (25-34); MEAN CORPUSCULAR HGB CONC 35 g/dL (32-36); MEAN CORPUSCULAR VOLUME 94 fL (80-99); MEAN PLATELET VOLUME 9.6 fL (9.0-12.2); MONOCYTES # (AUTO) 0.4 10^3/uL (0.0-1.0); MONOCYTES % (AUTO) 7 % (0-12); NEUTROPHILS # (AUTO) 3.4 10^3/uL (1.8-7.8); NEUTROPHILS % (AUTO) 63 % (42-75); PLATELET COUNT 137 10^3/uL (130-400); WHITE BLOOD COUNT 5.3 10^3/uL (4.3-11.0)
[2023-04-09 06:00] LABS: ALBUMIN 3.4 GM/DL (3.2-4.5); POTASSIUM 3.7 MMOL/L (3.6-5.0)
[2023-04-09 06:03] LABS: TOTAL PROTEIN 6.4 GM/DL (6.4-8.2)
[2023-04-09 06:04] LABS: BILIRUBIN,TOTAL 0.8 MG/DL (0.1-1.0)
[2023-04-09 06:06] LABS: CREATININE SERUM 1.42 MG/DL (0.60-1.30)
[2023-04-09] MEDS: NICOTINE 14 MG PATCH TD SCH (08:29)
[2023-04-09] MEDS: oxyCODONE/ACETAMINOPHEN 10/325MG TABLET PO PRN ×4 (08:37→23:23)
[2023-04-09 08:52] VITALS: BP 162/90
[2023-04-09] MEDS: HYDROmorphone INJECTION 2 MG/ML VIAL IVP PRN ×3 (10:40→20:53)
[2023-04-09 11:59] VITALS: BP 142/86
[2023-04-09] MEDS ORDERED: OXYC-556 PO (12:22)
--- NOTE | 2023-04-09 13:22 | History & Physical-Hospitalist ---
History of Present Illness HPI/Chief Complaint Pt is a 77yoCM with a PMH of chronic back pain, diet controlled DM who presented to the ER due to leg pain. He reports he had a wound on his right leg that has continued to worsen. He completed 10 day fo Keflex and 10 days evaristo Levaquin at home prior to coming here but it continued to worsen. He reports the pain was very intense like a severe leg cramp. The redness was up to almost his knee as well. He was admitted for IV abx and reports feeling better this morning. He had severe pain throughout the night but his pain is improving this morning and the redness is much better. He reports his a1c 6 months ago was 11 but with diet he got it down to 4.4 and he has an appt with his PCP next week to recheck it. He does not check his BS at home but watches his carbs. Source: patient Exam Limitations: no limitations Date Seen 04/09/23 Time Seen by a Provider: 09:30 Attending Physician Lin Roland DO PCP Admitting Physician: Hannah Padilla MD Attending Physician: Hannah Padilla MD Referring Physician Date of Admission Apr 08, 2023 at 20:48 Home Medications & Allergies Home Medications Reviewed patient Home Medication Reconciliation performed by pharmacy medication reconciliations account technician and/or nursing. Patients Allergies have been reviewed. Allergies Allergies Coded Allergies ibuprofen (Verified Allergy, Unknown, 06/22/16) Uncoded Allergies ppi ( Allergy, Mild, diarrhea, 06/22/16) Past Ovqrjof-Naedwz-Vhrkxr Hx Patient Social History Marrital Status: Employed/Student: retired Tobacco Use?: Yes Tobacco type used: Cigarettes Smoking Status: Heavy Tobacco Smoker Smokeless Tobacco Frequency: Current Everyday User Use of E-Cig and/or Vaping dev: No Use of E-Cig and/or Vaping Ross: Former User Substance use?: No Alcohol Use?: No Pt feels they are or have been: No Immunizations Up To Date Tetanus Booster (TDap): Unknown Seasonal Allergies Seasonal Allergies: No Current Status Advance Directives: No Communicates: Verbally Primary Language: Sri Lankan Preferred Spoken Language: Sri Lankan Is interpretation needed?: No Sensory deficits: Vision impairment Implanted or Applied Medical D: None Past Medical History Surgeries: Tonsillectomy Sleep Apnea Hypertension Sexually Transmitted Disease: No HIV/AIDS: No Ulcer Arthritis, Back Injury, Chronic Back Pain Loss of Vision: Bilateral Hearing Impairment: Denies Blood Disorders: No Adverse Reaction/Blood Tranf: No (N/A) Family Medical History No Pertinent Family Hx Review of Systems Constitutional: see HPI Physical Exam Physical Exam Vital Signs Vital Signs - First Documented 04/08/23 18:46 Temp 36.8 Pulse 81 Resp 18 B/P (MAP) 148/92 (110) Pulse Ox 95 O2 Delivery Room Air Capillary Refill : Less Than 3 Seconds Height, Weight, BMI Height: 5'10.00" Weight: 264lbs. 0.0oz. 119.067001ui; 32.99 BMI Method:Stated General Appearance: No Apparent Distress Respiratory: Lungs Clear, No Respiratory Distress Cardiovascular: Regular Rate, Rhythm, No Murmur Gastrointestinal: Normal Bowel Sounds, Soft Extremity: Other (erythema well within demarcation on leg from ER, wound on the medial aspect of his lower right legs noted but no draining) Neurologic/Psychiatric: Alert, Oriented x3 Results Results/Procedures Labs Laboratory Tests 04/08/23 18:28 04/09/23 04:53 Patient resulted labs reviewed. Imaging: Reviewed Imaging Report Imaging [facility], [place] NAME: ASHU SKELTON [facility] REC#: [id number] PT STATUS: ADM IN : 1945 PHYSICIAN: SKIP COSTA DO ADMIT DATE: 04/08/23 Signed Date of Exam:04/08/23 CT EXTREMITY LOWER RIGHT WO PROCEDURE: CT right lower extremity without contrast. TECHNIQUE: Axially acquired CT was obtained through the right lower extremity without intravenous contrast. Coronal and sagittal reformations were also performed. Auto Exposure Controls were utilized during the CT exam to meet ALARA standards for radiation dose reduction. INDICATION: Cellulitis. FINDINGS: There is no acute fracture, dislocation, or destructive osseous process. There is a possible healed fracture of the distal right tibia. There is mild diffuse subcutaneous edema throughout the right lower extremity without loculated fluid collection. The joint spaces are normal. IMPRESSION: 1. Diffuse subcutaneous edema throughout the right lower extremity without loculated fluid collection. Findings could be seen with edema or cellulitis in the appropriate clinical setting. 2. No acute osseous abnormality. Findings suggest chronic healed fracture of the distal right tibia. Dictated by: Dictated on workstation # [id number] Dict: 04/08/232012 Trans: 04/08/232119 [id number] Interpreted by: RUSH BROWNING DO Electronically signed by: RUSH BROWNING DO 04/08/232119 [facility], [place] NAME: ASHU SKELTON JR [facility] REC#: [id number] PT STATUS: REG ER : 1945 PHYSICIAN: SKIP COSTA DO ADMIT DATE: 04/08/23/ER Signed Date of Exam:04/08/23 CHEST 1 VIEW, AP/PA ONLY EXAMINATION: Chest, 1 view. HISTORY: Sepsis. COMPARISON: 05/29/2016. FINDINGS: The lung volumes are normal. No focal consolidation is seen. No large pleural effusion or pneumothorax is seen. The cardiomediastinal silhouette is normal in size and contour. No acute osseous abnormality is seen. IMPRESSION: No acute pleuroparenchymal process. Dictated by: Dictated on workstation # [id number] Dict: 04/08/231906 Trans: 04/08/231915 [id number] Interpreted by: JOEL BAIN DO Electronically signed by: JOEL BAIN DO 04/08/231915 Assessment/Plan Admission Diagnosis Cellulitis Admission Status: Inpatient Order (span 2 midnights) Reason for Inpatient Admission: failed outpatient management Assessment and Plan Cellulitis Failed outpatient management x2 Continue Vanc and Zosyn Likely wound consult on Tuesday Await cultures keep legs elevated Add dilaudid as Fentanyl not helping and unable to tolerate morphine Continue home percocet Dopplers ordered of legs to ensure adequate blood flow and no DVT NIDDMII BS 181 on arrival Declining SSI- encouraged him to comply with regimen Diet controlled HTN Continue home meds when med rec done DVT ppx: lovenox Diagnosis/Problems Diagnosis/Problems (1) Cellulitis HANNAH PADILLA MD Apr 09, 2023 13:22
[2023-04-09 16:17] VITALS: BP 146/72
[2023-04-09 19:53] VITALS: BP 136/88
[2023-04-09] MEDS: VANCOMYCIN 1500MG/300ML PREMIX 300 ML IV SCH (20:53)
--- NOTE | 2023-04-09 21:00 | Diagnostic Imaging Report ---
EXAMINATION: US Venous Lower Ext Hipolito. TECHNIQUE: Multiple Real-time grayscale images were obtained over the lower extremities in various projections bilaterally. Additional duplex Doppler and color Doppler images were also obtained. HISTORY: Swelling, cellulitis. COMPARISON: No comparison available. FINDINGS: Right: The common femoral, superficial femoral, popliteal, peroneal, posterior tibial, and greater saphenous veins demonstrate normal flow, augmentation, and compressibility. Left: The common femoral, superficial femoral, popliteal, peroneal, posterior tibial, and greater saphenous veins demonstrate normal flow, augmentation, and compressibility. IMPRESSION: No findings of deep venous thrombosis within the bilateral lower extremities. Dictated by: Dictated on workstation # [id number]
[2023-04-09 23:48] VITALS: BP 166/96
[2023-04-10] MEDS: PIPERACILLIN/Tazobactam 4.5 GM in NS (IVPB) 100 ML 100 ML IV SCH ×3 (01:06→17:10)
[2023-04-10] MEDS: NS IV 1000 ML 1,000 ML IV SCH (01:07)
[2023-04-10] MEDS: oxyCODONE/ACETAMINOPHEN 10/325MG TABLET PO PRN ×5 (03:10→21:08)
[2023-04-10 03:23] VITALS: BP 184/112
[2023-04-10] MEDS ORDERED: FUROSEMIDE INJECTION 40 MG/4 ML VIAL IVP ONE (03:45)
[2023-04-10] MEDS ORDERED: FUROSEMIDE INJECTION 40 MG/4 ML VIAL ONE (03:52)
[2023-04-10] MEDS: inSUlin ASPART 1 UNIT/0.01 ML (PER UNIT) SC SCH ×4 (05:56→21:07)
[2023-04-10 06:59] LABS: BASOPHILS % (AUTO) 1 % (0-10); EOSINOPHILS # (AUTO) 0.3 10^3/uL (0.0-0.3); EOSINOPHILS % (AUTO) 4 % (0-10); HEMATOCRIT 35 % (40-54); HEMOGLOBIN 12.2 g/dL (13.3-17.7); LYMPHOCYTES # (AUTO) 1.1 10^3/uL (1.0-4.0); LYMPHOCYTES % (AUTO) 18 % (12-44); MEAN CORPUSCULAR HEMOGLOBIN 34 pg (25-34); MEAN CORPUSCULAR HGB CONC 35 g/dL (32-36); MEAN CORPUSCULAR VOLUME 95 fL (80-99); MONOCYTES # (AUTO) 0.4 10^3/uL (0.0-1.0); MONOCYTES % (AUTO) 6 % (0-12); NEUTROPHILS # (AUTO) 4.3 10^3/uL (1.8-7.8); NEUTROPHILS % (AUTO) 71 % (42-75); PLATELET COUNT 137 10^3/uL (130-400); WHITE BLOOD COUNT 6.1 10^3/uL (4.3-11.0)
[2023-04-10 07:13] LABS: CALCIUM 8.5 MG/DL (8.5-10.1)
[2023-04-10 07:14] LABS: TOTAL PROTEIN 7.7 GM/DL (6.4-8.2)
[2023-04-10 07:16] LABS: BILIRUBIN,TOTAL 0.7 MG/DL (0.1-1.0)
[2023-04-10 07:17] LABS: CREATININE SERUM 1.41 MG/DL (0.60-1.30)
[2023-04-10] MEDS: NICOTINE 14 MG PATCH TD SCH (08:27)
[2023-04-10 08:33] VITALS: BP 135/70
--- NOTE | 2023-04-10 09:07 | Progress Note - Hospitalist ---
Subjective HPI/CC On Admission Date Seen by Provider: Apr 10, 2023 Pt is a 77yoCM with a PMH of chronic back pain, diet controlled DM who presented to the ER due to leg pain. He reports he had a wound on his right leg that has continued to worsen. He completed 10 day fo Keflex and 10 days evaristo Levaquin at home prior to coming here but it continued to worsen. He reports the pain was very intense like a severe leg cramp. The redness was up to almost his knee as well. He was admitted for IV abx and reports feeling better this morning. He had severe pain throughout the night but his pain is improving this morning and the redness is much better. He reports his a1c 6 months ago was 11 but with diet he got it down to 4.4 and he has an appt with his PCP next week to recheck it. He does not check his BS at home but watches his carbs. Subjective/Events-last exam Pt reports feeling better today. Pain improved. No new complaints. Focused Exam Lactate Level 04/08/23 19:01: Lactic Acid Level 1.06 Objective Exam Vital Signs Vital Signs Date Time Temp Pulse Resp B/P (MAP) Pulse Ox O2 Delivery O2 Flow Rate FiO2 04/10/23 08:33 36.4 88 18 135/70 (91) 92 Room Air Capillary Refill : Less Than 3 Seconds General Appearance: No Apparent Distress, Chronically ill, Obese Respiratory: Lungs Clear Cardiovascular: Regular Rate, Rhythm, No Murmur Gastrointestinal: Normal Bowel Sounds, Soft Neurologic/Psychiatric: Alert, Oriented x3 Results/Procedures Lab Laboratory Tests 04/10/23 06:49 Patient resulted labs reviewed. Imaging: Reviewed Imaging Report Assessment/Plan Assessment and Plan Assess & Plan/Chief Complaint Cellulitis Failed outpatient management x2 Continue Vanc and Zosyn Likely wound consult on Tuesday Blood cx negative x2 keep legs elevated Continue dilaudid Continue home percocet Dopplers negative for DVT NIDDMII BS poorly controlled Declining SSI- encouraged him to comply with regimen Diet controlled HTN Continue home meds DVT ppx: lovenox Diagnosis/Problems Diagnosis/Problems (1) Cellulitis HANNAH WARREN MD Apr 10, 2023 09:07
[2023-04-10] MEDS ORDERED: cloNIDine 0.1 MG TABLET PO PRN (09:15)
[2023-04-10 11:51] VITALS: BP 138/70
--- NOTE | 2023-04-10 13:34 | Diagnostic Imaging Report ---
PROCEDURE: US Bilateral lower extremity arterial. INDICATION: Right lower extremity cellulitis, bilateral leg cramping. TECHNIQUE: Multiple real-time grayscale images were obtained over the bilateral lower extremities in in various projections. Additional duplex Doppler and color Doppler images were also obtained. COMPARISON: None FINDINGS: Right lower extremity: The major arteries of the right leg are patent to the ankle. There is overall diminished but detectable flow at the dorsalis pedis and posterior tibial arteries at the ankle. Multiphasic waveform is present throughout the right lower extremity arterial system. There is no focal velocity changes to suggest a hemodynamically significant stenosis. Left lower extremity: The major arteries of the left leg are patent through the popliteal artery at the knee. There is detectable flow at the dorsalis pedis artery at the ankle. Absence of detectable flow posterior tibial artery. Multiphasic waveform is present throughout the left lower extremity arterial system. There is no focal velocity changes to suggest a hemodynamically significant stenosis. IMPRESSION: 1. Right leg negative for large vessel occlusion or hemodynamically significant stenosis. However, there is diminished flow in the vessels below the tibial peroneal trifurcation. 2. Left leg demonstrate absence of flow, likely occluded posterior tibial artery. Otherwise, remaining vessels are negative for large vessel occlusion or hemodynamically significant stenosis. Dictated by: Dictated on workstation # [id number]
[2023-04-10] MEDS ORDERED: FUROSEMIDE INJECTION 40 MG/4 ML VIAL IVP NR (15:30)
[2023-04-10 16:40] VITALS: BP 140/88
[2023-04-10] MEDS ORDERED: TROUGH ORDER-PHARMACY XX NR (19:00)
[2023-04-10 19:38] VITALS: BP 138/88
[2023-04-10] MEDS: VANCOMYCIN 1500MG/300ML PREMIX 300 ML IV SCH (21:43)
[2023-04-10 23:17] VITALS: BP 138/72
[2023-04-11] MEDS: PIPERACILLIN/Tazobactam 4.5 GM in NS (IVPB) 100 ML 100 ML IV SCH ×2 (00:57→08:38)
[2023-04-11] MEDS: oxyCODONE/ACETAMINOPHEN 10/325MG TABLET PO PRN ×3 (01:07→13:07)
[2023-04-11 03:39] VITALS: BP 140/68
[2023-04-11 05:47] LABS: BASOPHILS % (AUTO) 1 % (0-10); EOSINOPHILS # (AUTO) 0.3 10^3/uL (0.0-0.3); EOSINOPHILS % (AUTO) 4 % (0-10); HEMATOCRIT 35 % (40-54); HEMOGLOBIN 12.2 g/dL (13.3-17.7); LYMPHOCYTES # (AUTO) 1.4 10^3/uL (1.0-4.0); LYMPHOCYTES % (AUTO) 23 % (12-44); MEAN CORPUSCULAR HEMOGLOBIN 33 pg (25-34); MEAN CORPUSCULAR HGB CONC 35 g/dL (32-36); MEAN CORPUSCULAR VOLUME 94 fL (80-99); MEAN PLATELET VOLUME 9.4 fL (9.0-12.2); MONOCYTES # (AUTO) 0.5 10^3/uL (0.0-1.0); MONOCYTES % (AUTO) 7 % (0-12); NEUTROPHILS % (AUTO) 65 % (42-75); PLATELET COUNT 151 10^3/uL (130-400); WHITE BLOOD COUNT 6.2 10^3/uL (4.3-11.0)
[2023-04-11 06:11] LABS: ALBUMIN 3.9 GM/DL (3.2-4.5); BILIRUBIN,TOTAL 1.2 MG/DL (0.1-1.0); CALCIUM 8.7 MG/DL (8.5-10.1); CREATININE SERUM 1.56 MG/DL (0.60-1.30); POTASSIUM 3.5 MMOL/L (3.6-5.0); TOTAL PROTEIN 7.5 GM/DL (6.4-8.2)
[2023-04-11] MEDS: inSUlin ASPART 1 UNIT/0.01 ML (PER UNIT) SC SCH ×2 (06:13→11:04)
[2023-04-11 08:23] VITALS: BP 144/82
[2023-04-11] MEDS: TORSEMIDE 10 MG (DEMADEX) TABLET PO SCH ×2 (08:30→08:37)
[2023-04-11] MEDS: NICOTINE 14 MG PATCH TD SCH (08:37)
[2023-04-11] MEDS ORDERED: CHOL20002 PO (10:20)
[2023-04-11] MEDS ORDERED: CORN SILK PO (10:20)
[2023-04-11] MEDS ORDERED: OXYC-556 PO (10:20)
[2023-04-11] MEDS ORDERED: TORS100T4 PO (10:20)
[2023-04-11] MEDS ORDERED: VITA80009 PO (10:20)
[2023-04-11] MEDS ORDERED: TELM1TAB36 PO (10:20)
[2023-04-11] MEDS ORDERED: VITA100T8 PO (10:20)
[2023-04-11] MEDS ORDERED: CYAN-41 PO (10:20)
[2023-04-11] MEDS ORDERED: cloNIDine 0.1 MG TABLET PO PRN (10:30)
--- NOTE | 2023-04-11 11:07 | Wound Care Assessment ---
Wound Care Assessment Date Seen by Provider: Apr 11, 2023 Time Seen by Provider: 10:56 Chief Complaint RLE cellulitis RLE wound HPI Jagdeep Zamora is a 77yoM with past medical history of T2DM, HTN, and chronic back pain who was admitted for RLE cellulitis after failing outpatient treatment with 10 days of keflex followed by 20 days of levaquin. He also has 2 wounds present on R lower extremity on the medial portion of the calf 2-3 inches superior to the medial malleolus. He reports these wounds have been present since some time in the spring. He scraped the medial portion of his R lower leg with some object that he does not remember. He began treating these wounds at home with antibiotic ointment and covering with a bandaid. As they did not improve he sought the attention of his primary care provider Dr Roland in [place], [place]. He was then placed on abx as above. He did note his wounds improved on outpatient treatment but the redness and pain got worse again after finishing course last week. He has been on IV abx with Vanc and Zosyn since admission and has noted improvement with smaller area of redness and less pain over the last 2 days. He denies any bloody or purulent drainage from wound. He does report periwound area is very tender. Denies fevers and chills. Has not had open wound in this area before. He reports he has had outpatient workup with his PCP for peripheral arterial disease and has an appointment with Dr Correa at [place] scheduled for May 17 for further management. He is not currently on any medication for diabetes at home. He does not check his blood sugars at home but reports he has had good control with diet. Past Medical History: Admits Diabetes Type II, Admits Peripheral Artery Disease; Denies Deep Vein Thrombosis, Denies Lupas Smoking Status: Heavy Tobacco Smoker Recreational Drug Use: No Alcohol Use: Denies Use Review of Systems General: No Chills HEENT: No Head Aches Pulmonary: No Dyspnea, No Cough Cardiovascular: No: Chest Pain Gastrointestinal: No: Nausea, Vomiting, Abdominal Pain Neurological: No: Weakness, Numbness, Confusion Exam Vital Signs Date Time Temp Pulse Resp B/P (MAP) Pulse Ox O2 Delivery O2 Flow Rate FiO2 04/11/23 08:23 36.0 86 17 144/82 (102) 97 Room Air Capillary Refill : Less Than 3 Seconds General Appearance: WD/WN, no apparent distress HEENT: PERRL/EOMI Neck: supple Cardiovascular: No no JVD; other (weak post tib pulse on R) Respiratory: No chest non-tender, No no respiratory distress, No no accessory muscle use Gastrointestinal: non tender, soft Neurologic/Psychiatric: alert, oriented x 3 Skin: other (wound present medial portion of R calf, skin is dry with flaking of epidermis, skin is shiny and hairless at R foot) Skin Problem Location: lower extremities Skin Character: erythema, lesion, tenderness R medial calf wound with cellulitis No tunneling or undermining Full thickness No drainage or odor Margins are flat Granulation is none Epitheliazation is small Necrotic is large and eschar Anterior wound is 2.1cm x 3.0cm x 0.1cm Posterior wound is 2.2cm x 1.6cm x 0.1 cm Diabetes mellitus and peripheral arterial disease likely contributing to slowed wound healing Results Laboratory Tests 04/10/23 16:15: Glucometer 223H 04/10/23 18:45: Vancomycin Level Trough 11.0 04/10/23 20:19: Glucometer 189H 04/11/23 05:12: White Blood Count 6.2, Red Blood Count 3.68L, Hemoglobin 12.2L, Hematocrit 35L, Mean Corpuscular Volume 94, Mean Corpuscular Hemoglobin 33, Mean Corpuscular Hemoglobin Concent 35, Red Cell Distribution Width 14.2, Platelet Count 151, Mean Platelet Volume 9.4, Immature Granulocyte % (Auto) 0, Neutrophils (%) (Auto) 65, Lymphocytes (%) (Auto) 23, Monocytes (%) (Auto) 7, Eosinophils (%) (Auto) 4, Basophils (%) (Auto) 1, Neutrophils # (Auto) 4.0, Lymphocytes # (Auto) 1.4, Monocytes # (Auto) 0.5, Eosinophils # (Auto) 0.3, Basophils # (Auto) 0.0, Immature Granulocyte # (Auto) 0.0, Sodium Level 139, Potassium Level 3.5L, Chloride Level 103, Carbon Dioxide Level 26, Anion Gap 10, Blood Urea Nitrogen 22H, Creatinine 1.56H, Estimat Glomerular Filtration Rate 46, BUN/Creatinine Ratio 14, Glucose Level 161H, Calcium Level 8.7, Corrected Calcium 8.8, Total Bilirubin 1.2H, Aspartate Amino Transf (AST/SGOT) 21, Alanine Aminotransferase (ALT/SGPT) 13, Alkaline Phosphatase 48, Total Protein 7.5, Albumin 3.9 Microbiology 04/08/23 Blood Culture - Preliminary, Resulted Assessment/Plan/Dx 1. Right lower extremity wound with periwound RLE cellulitis 2. Diabetes Mellitus, non insulin dependent 3. Peripheral arterial disease of bilateral lower extremities 4. HTN Plan: 1. Continue IV abx per primary team, currently on Vanc and Zosyn after failing keflex and levaquin treatment as outpatient, improving No leukocytosis or fever blood cultures negative to date ESR slightly elevated on admission Wound is dry with low/no exudate covered with dry eschar Betadine paint bid and open to air Follow up as outpatient if fails to heal with peripheral intervention 2. per primary team, patient has refused SSI in hospital 3. Venous and Arterial ultrasound studies completed this admission, no DVT Reduced arterial flow on R below tibial peroneal trifurcation, likely occluded post tibial artery on L as well Patient has outpatient visit on May [address] Correa at [place] 4. Per primary team Supervisory-Addendum Brief Verification & Attestation Participated in pt care: history, MDM, physical Personally performed: exam, history, MDM, supervision of care Care discussed with: Medical Student Procedures: n/a Results interpretation: Verified all documentation CULLEN AHUMADA Apr 11, 2023 11:07 ELFEGO LINARES MD Apr 11, 2023 12:12
--- NOTE | 2023-04-11 11:29 | Physical Therapy Evaluation ---
PT Evaluation-General Medical Diagnosis Admission Date Apr 08, 2023 at 20:48 Medical Diagnosis: Cellulitis Right Leg Onset Date: Apr 08, 2023 Therapy Diagnosis Therapy Diagnosis: unsteady gait Height/Weight Height (Feet): 5 Height (Inches): 10.00 Weight (Pounds): 264 Weight (Ounces): 0.0 Precautions Precautions/Isolations: Standard Precautions Referral Physician: Jessy Padilla Reason for Referral: Evaluation/Treatment Medical History Pertinent Medical History: DM Additional Medical History chronic Low back pain Current History Pt admitted via ER due to right leg pain with an open wound. He was admitted for IV antibiotic treatment. Reviewed History: Yes Social History Home: Single Level Current Living Status: Spouse Pt reports he is normally unsteady with his first few steps but then can walk as much as needed. He uses a cane for outdoor ambulation. Prior Prior Level of Function SCALE: Activities may be completed with or without assistive devices. 2-Uyfndsjbog-uykfvvw completes the activity by him/herself with no assistance from a helper. 5-Set-up or Clean-up Assistance-helper sets up or cleans up; patient completes activity. [place] assists only prior to or following the activity. 4-Supervision or Touching Assistance-helper provides verbal cues and/or touching/steadying and/or contact guard assistance as patient completes activity. Assistance may be provided throughout the activity or intermittently. 3-Partial/Moderate Assistance-helper does LESS THAN HALF the effort. [place] lifts, holds or supports trunk or limbs, but provides less than half the effort. 2-Substantial/Maximal Assistance-helper does MORE THAN HALF the effort. [place] lifts or holds trunk or limbs and provides more than half the effort. 6-Oeebjfajt-njbfnu does ALL the effort. Patient does none of the effort to complete the activity. Or, the assistance of 2 or more helpers is required for the patient to complete the activity. If activity was not attempted, code reason: 7-Patient Refused. 9-Not Applicable-not attempted and the patient did not perform the activity before the current illness, exacerbation or injury. 10-Not Attempted due to Environmental Limitations-(lack of equipment, weather restraints, etc.). 88-Not Attempted due to Medical Conditions or Safety Concerns. Bed Mobility: 6 Transfers (B,C,W/C): 6 Gait: 6 PT Evaluation-Current Subjective Pt reports he is feeling better and his mobility is back to almost normal. His pain in the right foot does limit his mobility to some extent. Objective Patient Orientation: Normal For Age Attachments: IV Sensory Vision: Functional Hearing: Functional Sensation Right Lower Extremit: Impaired Sensation Left Lower Extremity: Impaired Transfers Roll Left to Right (QC): 6 Sit to Lying (QC): 6 Lying to Sitting/Side of Bed(Q: 6 Sit to Stand (QC): 6 Chair/Rmb-kx-Pjnev Xfer(QC): 6 Toilet Transfer (QC): 6 Gait Does the Patient Walk?: Yes Anticipated Mode of Locomotion: Walk Distance: 300 Gait Assistive Device: None Comments/Gait Description Walked 300ft with no assistive device. Pt had no LOB and was steady in open areas. Balance Sitting Static: Normal Sitting Dynamic: Normal Standing Static: Fair Standing Dynamic: Fair Assessment/Needs Rehab Potential: Good PT Network Specialist Goals Network Specialist Goals PT Care Home Goals Time Frame: Apr 11, 2023 Roll Left & Right (QC): 6 Sit to Lying (QC): 6 Lying-Sitting on Side/Bed(QC): 6 Sit to Stand (QC): 6 Chair/Rzy-oe-Jlndm Xfer(QC): 6 Toilet Transfer (QC): 6 Walk 150 ft (QC): 6 PT Plan Problem List Problem List: Balance, Gait Treatment/Plan Treatment Plan: Continue Plan of Care Educated patient on importance of standing to gain balance before taking first steps. Pt encouraged to utilize his can on uneven surfaces. Pt acknowledged balance issues and plans to proceed with caution. Treatment Duration: Apr 11, 2023 Frequency: Estimated Hrs Per Day: Other Patient and/or Family Agrees t: Yes Safety Risks/Education Patient Education: Gait Training, Reviewed Precautions, Safety Issues Teaching Recipient: Patient Teaching Methods: Demonstration, Discussion Response to Teaching: Verbalize Understanding Discharge Recommendations Plan Pt met short term goals. He has sufficient mobility for in room ambulation and has sufficient mobility for return home with assist of spouse. Pt discharged from therapy care at this time. Therapy Discharge Recommendati: Home & Family Time Time In: 914 Time Out: 929 DATE: Apr 11, 2023 Total Billed Treatment Time: 15 Total Billed Treatment visit, evaluation 15 minutes, discharge NCIO SUÁREZ PT Apr 11, 2023 11:29
[2023-04-11] MEDS ORDERED: DOXY100C5 PO (12:53)
[2023-04-11] MEDS ORDERED: AMOX1TAB12 PO (12:53)
== END 2023-04-11 13:45 | disposition home or self-care (01) | DRG 603 ==
LOC: EDUNIT# 18:32 → ER 18:34 → 4TH 20:48
PROVIDERS: ADMIT Family Medicine; ATTEND Internal Medicine
DX: L03.115 Cellulitis of right lower limb (principal); G89.29 Other chronic pain; M54.9 Dorsalgia, unspecified; F17.210 Nicotine dependence, cigarettes, uncomplicated; I10 Essential (primary) hypertension; E11.51 Type 2 diabetes mellitus with diabetic peripheral angiopathy without gangrene; G47.30 Sleep apnea, unspecified; Z66 Do not resuscitate
CPT/HCPCS: 36415; 71045; 73700; 80053; 80202; 82947; 83605; 83735; 83874; 83880; 85025; 85610; 85652; 85730; 86141; 87040; 90471; 90715; 93041; 93925; 93970; 96361; 96365; 96367; 96375

== ENCOUNTER → 2023-04-21 | Outpatient (CLI) | payer MEDICARE ==
[~2023-04-21] MED LIST changes: +AMOX1TAB12 PO; +CHOL20002 PO; +CORN SILK PO; +CYAN-41 PO; +DOXY100C5 PO; +OXYC-556 PO; +TELM1TAB36 PO; +TORS100T4 PO; +VITA100T8 PO; +VITA80009 PO
== END ==
LOC: WOUNDCARE 09:20
PROVIDERS: ATTEND Family Medicine
DX: L97.212 Non-pressure chronic ulcer of right calf with fat layer exposed (principal); I70.232 Atherosclerosis of native arteries of right leg with ulceration of calf; E11.622 Type 2 diabetes mellitus with other skin ulcer; I89.0 Lymphedema, not elsewhere classified; F17.218 Nicotine dependence, cigarettes, with other nicotine-induced disorders; E11.65 Type 2 diabetes mellitus with hyperglycemia
CPT/HCPCS: 11042; A6197; A6212; G0463

== ENCOUNTER → 2023-05-03 | Outpatient (CLI) | payer MEDICARE | LOC: WOUNDCARE 13:12 | PROVIDERS: ATTEND Family Medicine | DX: I96 Gangrene, not elsewhere classified (principal); I70.232 Atherosclerosis of native arteries of right leg with ulceration of calf; E11.622 Type 2 diabetes mellitus with other skin ulcer; E11.65 Type 2 diabetes mellitus with hyperglycemia; L97.212 Non-pressure chronic ulcer of right calf with fat layer exposed; I89.0 Lymphedema, not elsewhere classified; G90.09 Other idiopathic peripheral autonomic neuropathy; F17.218 Nicotine dependence, cigarettes, with other nicotine-induced disorders | CPT/HCPCS: 11042; G0463 ==